=== PATIENT | male | born 1960 | race Caucasian/White ===

== ENCOUNTER 2020-08-22 09:09 | Outpatient (REF) | payer OTHER, SELFPAY | END 2020-08-22 09:10 | disposition home or self-care (01) | LOC: HO.HOSX 09:09 | PROVIDERS: Visit Provider Orthopaedic Surgery | DX: Z13.89 Encounter for screening for other disorder (principal) ==

== ENCOUNTER 2020-08-25 13:54 | Outpatient (REF) | payer OTHER, SELFPAY ==
--- NOTE | ~2020-08-25 | XR_ITS ---
EXAMINATION: XR HAND, LEFT CLINICAL INFORMATION: Pain left hand. COMPARISON: None. TECHNIQUE: PA, lateral, and oblique views of the left hand. FINDINGS: There is a soft tissue calcification adjacent to the base of the thumb, likely old injury. There is no visible acute fracture or dislocation. The visualized IP, MCP and intercarpal joint space is maintained normal. The soft tissues are normal. XR/XR hand LT min 3V IMPRESSION: No acute fracture or dislocation. Soft tissue calcification at the base of the thumb and lateral to the trapezial bone, likely old injury. There is no bony or joint abnormality seen of the left hand or wrist.
== END 2020-08-25 13:55 | disposition home or self-care (01) ==
LOC: HO.HOSX 13:54
PROVIDERS: Visit Provider Orthopaedic Surgery
DX: M79.642 Pain in left hand (principal); S63.263A Dislocation of metacarpophalangeal joint of left middle finger, initial encounter
CPT/HCPCS: 73130; 99202

== ENCOUNTER 2020-09-05 08:20 | Day surgery (SDC) | payer OTHER, SELFPAY ==
[2020-09-01 12:17] VITALS: BMI 32.8
--- NOTE | 2020-09-03 12:20 | HO.ANESPROP2 ---
Documented by User: Cheri Cook 09/03/20 12:21 HPI - Anesthesia Eval Consult details Narrative: 60yo M for Left Middle Finger Metacarpophalangeal Joint Fx ORIF PMFSH Active Problems Active Problems: All Active Problems (Updated 08/29/20 @ 16:23 by Maddy Harvey) Dislocation of metacarpophalangeal joint of left middle finger (Acute) Past Medical History Medical History Asthma Circadian rhythm sleep disorder, shift work type Environmental allergies GERD (gastroesophageal reflux disease) Hiatal hernia History of TMJ disorder Hyperlipidemia CHRISTIN (obstructive sleep apnea) Vitamin D deficiency Surgical History Surgical History History of esophagogastroduodenoscopy (EGD) History of repair of anterior cruciate ligament of right knee Hx of cholecystectomy Hx of colonoscopy Social History Social History Alcohol intake: never Smoking Status: Never smoker Second Hand Smoke Exposure: No Use of substances other than those prescribed or required for medical reasons: No Are you DNR?: No Advance Directives: No Advance Directives Information Provided: Yes Advance Directives on File: No Current occupational status: employed Current occupation: right handed Meds Allergies Allergy/AdvReac Type Severity Reaction Status Date / Time meperidine [Demerol] Allergy Unknown unk Verified 09/01/20 11:58 sildenafil [Viagra] Allergy Unknown unk Verified 09/01/20 11:58 Home Medications Medication Instructions Recorded Confirmed Last Taken Type albuterol sulfate 90 mcg/actuation 2 puff INHALATION Q4-6H PRN 08/25/20 08/29/20 09/05/20 History aerosol inhaler budesonide-formoterol HFA 160 2 puff INHALATION BID 08/25/20 08/29/20 09/05/20 History mcg-4.5 mcg/actuation aerosol inhaler cetirizine 10 mg tablet 10 mg PO DAILY 08/25/20 08/29/20 Unknown History epinephrine 0.3 mg/0.3 mL IM PRN 08/25/20 Unknown History injection, auto-injector etodolac 400 mg tablet 400 mg PO TID 08/25/20 08/29/20 Unknown History fluticasone propionate 50 1 spray INTRANASAL DAILY 08/25/20 08/29/20 Unknown History mcg/actuation nasal spray,suspension ketotifen fumarate 0.025 % (0.035 drp OPHTHALMIC (EYE) 08/25/20 Unknown History %) eye drops meloxicam 15 mg tablet 15 mg PO DAILY 08/25/20 08/29/20 Unknown History mometasone 1 inh INHALATION BID 08/25/20 08/29/20 Unknown History montelukast 10 mg tablet 10 mg PO DAILY 08/25/20 08/29/20 Unknown History omeprazole 20 mg capsule,delayed 20 mg PO DAILY 08/25/20 08/29/20 Unknown History release pravastatin 10 mg tablet 10 mg PO BEDTIME 08/25/20 08/29/20 Unknown History tiotropium bromide 2.5 2 puff INHALATION DAILY 08/25/20 08/29/20 Unknown History mcg/actuation mist for inhalation Exam Exam Date and Time: September 03, 2020 1220 Height,Weight and Vital Signs: Height 5 ft 7 in Weight 95.254 kg Assessment and Plan Assessment Anesthesia Assessment: Chart Reviewed Documented by User: Paolo Ramirez 09/05/20 09:38 PMFSH Past Medical History Medical History Asthma Circadian rhythm sleep disorder, shift work type Environmental allergies GERD (gastroesophageal reflux disease) Hiatal hernia History of TMJ disorder Hyperlipidemia CHRISTIN (obstructive sleep apnea) Vitamin D deficiency Surgical History Surgical History History of esophagogastroduodenoscopy (EGD) History of repair of anterior cruciate ligament of right knee Hx of cholecystectomy Hx of colonoscopy Social History Social History Alcohol intake: never Smoking Status: Never smoker Second Hand Smoke Exposure: No Use of substances other than those prescribed or required for medical reasons: No Are you DNR?: No Advance Directives: No Advance Directives Information Provided: Yes Advance Directives on File: No Current occupational status: employed Current occupation: right handed Meds Allergies Allergy/AdvReac Type Severity Reaction Status Date / Time meperidine [Demerol] Allergy Unknown unk Verified 09/01/20 11:58 sildenafil [Viagra] Allergy Unknown unk Verified 09/01/20 11:58 Home Medications Medication Instructions Recorded Confirmed Last Taken Type albuterol sulfate 90 mcg/actuation 2 puff INHALATION Q4-6H PRN 08/25/20 08/29/20 09/05/20 History aerosol inhaler budesonide-formoterol HFA 160 2 puff INHALATION BID 08/25/20 08/29/20 09/05/20 History mcg-4.5 mcg/actuation aerosol inhaler cetirizine 10 mg tablet 10 mg PO DAILY 08/25/20 08/29/20 Unknown History epinephrine 0.3 mg/0.3 mL IM PRN 08/25/20 Unknown History injection, auto-injector etodolac 400 mg tablet 400 mg PO TID 08/25/20 08/29/20 Unknown History fluticasone propionate 50 1 spray INTRANASAL DAILY 08/25/20 08/29/20 Unknown History mcg/actuation nasal spray,suspension ketotifen fumarate 0.025 % (0.035 drp OPHTHALMIC (EYE) 08/25/20 Unknown History %) eye drops meloxicam 15 mg tablet 15 mg PO DAILY 08/25/20 08/29/20 Unknown History mometasone 1 inh INHALATION BID 08/25/20 08/29/20 Unknown History montelukast 10 mg tablet 10 mg PO DAILY 08/25/20 08/29/20 Unknown History omeprazole 20 mg capsule,delayed 20 mg PO DAILY 08/25/20 08/29/20 Unknown History release pravastatin 10 mg tablet 10 mg PO BEDTIME 08/25/20 08/29/20 Unknown History tiotropium bromide 2.5 2 puff INHALATION DAILY 08/25/20 08/29/20 Unknown History mcg/actuation mist for inhalation Exam Airway Mallampati Class: III TM Dist: >3cm Neck ROM: Full Loose/Missing/Broken Teeth: No Heart: [id number] Lungs: cta b/l Assessment and Plan Assessment Anesthesia Assessment: Anesthesia Plan Discussed, PAT Visit and Chart Reviewed Final Anesthetic Review NPO: Yes ASA Class: III Final Preanesthetic Review: No Changes in Pt Med Stat, Meds/Allgs Chart Reviewed, Consent Obtained/Reviewed and Anes Risks/Benef Reviewed Patient Risk: Intermediate Procedure Risk: Low Assessment/Block/Sedation in SS: Assess/Block/Sedation-SS Anesthetic Plan Anesthetic Plan: GA and Agree w/ Assess. and Plan Disposition: Standard PACU
[2020-09-05] VITALS (7 sets, daily range): BP systolic 114–139; BP diastolic 64–85; PULSE 55–81; RESP 12–18; TEMP 36.3; O2SAT 93–98
--- NOTE | ~2020-09-05 | FL_ITS ---
EXAMINATION: XR FLUOROSCOPY WITH IMAGES CLINICAL INFORMATION: Left middle finger ORIF. COMPARISON: None. TECHNIQUE: Fluoroscopy performed by Zuri Garcia MD Fluoroscopy time: 39.97) seconds DAP: [id number] mGy-cm2 Images: 5 FL/FL guidance in OR FINDINGS/IMPRESSION: Fluoroscopy was provided to Zuri Garcia during ORIF of left middle finger.
--- NOTE | 2020-09-05 09:21 | MHC.SHP ---
Pre-Procedural Eval Section B Chief Complaint: dislocation of metacarpophalangeal Allergies: Allergies Allergy/AdvReac Type Severity Reaction Status Date / Time meperidine [Demerol] Allergy Unknown unk Verified 09/01/20 11:58 sildenafil [Viagra] Allergy Unknown unk Verified 09/01/20 11:58 Plan I have reviewed the history and physical and performed a pertinent physical examination on my patient. No changes have occurred unless specified.
--- NOTE | 2020-09-05 09:22 | W.PM.OPN ---
Operative Note Operative Note Date of Service: 09/05/20 Narrative: Operative Note Narrative: Preop diagnosis: 1. Locked left 3rd MCP joint Postop diagnosis: Same Procedure: 1. Left 3rd MCP joint A1 rosalee release 2. Left 3rd MCP joint arthrotomy 3. Left 3rd MCP joint excision of volar ulnar osteophyte 4. Left middle finger release of 3rd dorsal interosseous tendon Surgeon: Zuri Garcia MD Anesthesia: Mac plus regional block Findings: Osteophyte off the volar ulnar head of the 3rd metacarpal with entrapment of the tendon of the 3rd dorsal interosseous. After removal of the osteophyte and release of this tendon we had significantly improved passive range of motion through extension. In flexion he was noted to have tight collateral ligaments which after performing a gentle closed manipulation we were able to significantly improved. Passive range of motion improved, also without ulnar deviation of the middle finger. Implants: None Tourniquet time: 56 minutes minutes EBL: 5.0 ml Specimen: None Drains: None Complications: None Disposition: Brought to the recovery room in stable condition Plan: Follow-up in 10-14 days for wound check and suture removal. Consider possible referral for OT hand therapy. Indications: The patient is a 60 year old man with a left locked 3rd MCP joint following a hyper extension/dislocation event in early June 2020 . The risks and benefits of operative treatment, including but not limited to risk of damage to blood vessels, nerves, tendons, infection, recurrence, persistent pain or numbness, incomplete resolution of preoperative symptoms, or need for further surgery were discussed with the patient and they wished to proceed with surgery. Procedure: Once consent was obtained patient was brought back to the operating suite and placed in the operating table in a supine position. . Perioperative antibiotics and anesthesia was administered by the anesthesia team. A tourniquet was applied to the proximal aspect of the left upper extremity and the limb was prepped and draped in a standard surgical fashion. The FluoroScan was used to take multiple images of the 3rd MCP joint. The joint appeared to be volarly subluxated, but I did not see any other significant abnormalities. I 1st injected the 3rd MCP joint with some 1% lidocaine with 1 100,000 epinephrine. After distending the joint I attempted to release it and reduce it. This was unsuccessful. At this point The limb was elevated exsanguinated with Esmarch bandage and the tourniquet inflated to 250 mm of mercury for a total tourniquet time of 56 minutes. I made a Dru incision over the palmar aspect of the 3rd MCP joint extending from the the mid aspect of the proximal phalanx to the mid palmar crease. The incision was made through the skin to the subcutaneous tissues using a 15. Blade. Then dissected down to the level of the A1 rosalee and flexor tendon sheath using tenotomy scissors. The neurovascular structures were protected during the case. I then released the A1 rosalee by making a longitudinal incision 1st with a 15. Blade, then with tenotomy scissors. I also released the proximal 5 mm of the A2 orsalee and some of the proximal aspect of the tendon sheath. This allowed me to retract the flexor tendons and evaluate the volar plate. The volar plate was noted to be intact and uninjured. At this point I made a longitudinal incision in the ulnar aspect of the volar plate using a 15. Blade. This exposed the volar aspect of the 3rd MCP joint. There was some inflamed synovial him in the joint which was debrided using a small rongeur. He was noted to have an osteophyte off the volar ulnar aspect of the 3rd metacarpal head with entrapment of the 3rd dorsal interosseous tendon. The tendon was also somewhat abraded and not in good condition. Was not able to simply move the tendon out from the osteophyte, it appeared to be caught in it. I also encountered a couple of small pieces of cartilage or broken osteophyte. These were removed from the joint. At this point I used a small rongeur to remove the osteophyte on the volar ulnar aspect of the 3rd metacarpal head. This also released the tendon of the 3rd dorsal interosseous. The 3rd MCP joint was then washed out of any further debris. Preoperatively I had only been able to passively extend the 3rd MCP joint to about 20? from full extension. After removing the osteophyte and releasing the tendon I was now able to passively bring the 3rd MCP joint into about 10? of hyper extension along with the index and ring fingers. Preoperatively I was only able to bring the 3rd MCP joint to perhaps 35? of flexion. Afterwards he still had some stiffness in this joint, but I was able to perform a closed manipulation and passively bring the 3rd MCP joint down to 90? of flexion, stretching the collateral ligaments. At this point the tourniquet was deflated and hemostasis obtained with a brief period of local pressure and bipolar electrocautery. The wound was copiously irrigated with normal saline. The skin edges were reapproximated with 5-0 nylon suture. The wound was infiltrated with some 1% lidocaine with epinephrine for postop pain control and a sterile dressing was applied. The patient appears to have tolerated the procedure well and with no complications. All digits were well vascularized conclusion of the case.
[2020-09-05] MEDS: Acetaminophen 325 MG TABLET 650 MG PO (11:37)
== END 2020-09-05 14:06 | disposition home or self-care (01) ==
LOC: HO.SSS 08:21
PROVIDERS: Visit Provider Orthopaedic Surgery
PROC: (CPT 26055; principal; 2020-09-05 10:40)
DX: S63.263A Dislocation of metacarpophalangeal joint of left middle finger, initial encounter (principal); X50.9XXA Other and unspecified overexertion or strenuous movements or postures, initial encounter; Y93.9 Activity, unspecified; Y92.9 Unspecified place or not applicable; Y99.8 Other external cause status; J45.909 Unspecified asthma, uncomplicated; G47.33 Obstructive sleep apnea (adult) (pediatric); G47.26 Circadian rhythm sleep disorder, shift work type; Z79.51 Long term (current) use of inhaled steroids; Z79.899 Other long term (current) drug therapy; Z88.8 Allergy status to other drugs, medicaments and biological substances
CPT/HCPCS: 26055 ×2; 26075; J0690; J1100; J2250; J2405; J3010

== ENCOUNTER 2020-09-16 16:22 | Outpatient (REF) | payer OTHER, SELFPAY | END 2020-09-16 16:23 | disposition home or self-care (01) | LOC: HO.HOSX 16:22 | PROVIDERS: Visit Provider Orthopaedic Surgery | DX: Z13.89 Encounter for screening for other disorder (principal) ==

== ENCOUNTER 2020-09-17 08:55 | Outpatient (REF) | payer OTHER, SELFPAY ==
--- NOTE | ~2020-09-17 | XR_ITS ---
EXAMINATION: XR HAND, LEFT CLINICAL INFORMATION: Left hand pain. COMPARISON: 08/25/2020 left ankle radiographs. TECHNIQUE: PA, lateral, and oblique views of the left hand. FINDINGS: There is no acute fracture or dislocation. The joint spaces are unremarkable. An osseous density is seen lateral to the trapezium bone and proximal to the radial base of the first metacarpal. The carpal bones are normally aligned. The distal radius and ulna are intact. There is mild soft tissue swelling XR/XR hand LT min 3V IMPRESSION: 1. Mild soft tissue swelling without acute underlying osseous abnormality. 2. Small osseous density along the lateral aspect of the carpal bones does not appear acute with corticated margins, similar to the previous study. This could be degenerative in nature or secondary to old injury. Correlate with patient history and physical exam.
== END 2020-09-17 08:56 | disposition home or self-care (01) ==
LOC: HO.HOSX 08:55
PROVIDERS: Visit Provider Orthopaedic Surgery
DX: S63.263D Dislocation of metacarpophalangeal joint of left middle finger, subsequent encounter (principal)
CPT/HCPCS: 73130; 99212

== ENCOUNTER 2020-10-02 08:12 | Outpatient (REF) | payer OTHER, SELFPAY ==
--- NOTE | ~2020-10-02 | MR_ITS ---
EXAMINATION: MR HAND WITHOUT CONTRAST, LEFT CLINICAL INFORMATION: Middle finger swelling and pain. Recent surgery. COMPARISON: Radiographs 09/17/2020 TECHNIQUE: MRI without contrast is performed on the left hand. FINDINGS: There is edema and ill-defined soft tissue thickening surrounding the 3rd MCP joint. The radial and ulnar collateral ligaments are thickened and intermediate in signal which may represent sprains and/or surgical repair. No fluid signal full-thickness defect. There is volar subluxation of the proximal phalanx, with the dorsal aspect of the base of the proximal phalanx abutting the mid aspect of the metacarpal head. Mild marrow edema of the metacarpal head. There may be a small body in the volar joint recess on sagittal image 17, with a trace effusion. The inferior capsule is thickened with volar displacement of the flexor tendons relative to the distal metacarpal implying injury to the sagittal bands. There is mild flexor tenosynovitis, with no tendon tear. MR/MR hand LT wo con IMPRESSION: Posttraumatic and/or postsurgical changes of the 3rd MCP joint, as detailed in the comments, with volar subluxation of the proximal phalanx. Trace effusion and possible tiny body within the volar joint recess. The collateral ligaments are intermediate in signal and ill-defined.
== END 2020-10-02 08:13 | disposition home or self-care (01) ==
LOC: HO.MRI 08:12
PROVIDERS: Visit Provider Orthopaedic Surgery
DX: S63.263A Dislocation of metacarpophalangeal joint of left middle finger, initial encounter (principal); X58.XXXA Exposure to other specified factors, initial encounter; Y93.9 Activity, unspecified; Y92.9 Unspecified place or not applicable; Y99.9 Unspecified external cause status
CPT/HCPCS: 73218

== ENCOUNTER → 2020-10-13 13:47 | Outpatient (BNVA) | payer OTHER, SELFPAY | PROVIDERS: Visit Provider Orthopaedic Surgery | DX: S63.263D Dislocation of metacarpophalangeal joint of left middle finger, subsequent encounter (principal) | CPT/HCPCS: 99212 ==

== ENCOUNTER 2020-10-21 10:16 | Day surgery (SDC) | payer OTHER, SELFPAY ==
--- NOTE | 2020-10-17 08:48 | HO.ANESPROP2 ---
Documented by User: Cheri Cook 10/17/20 08:48 HPI - Anesthesia Eval Consult details Narrative: 60yo M for Left Metacarpal ORIF middle finger MCP joint s/p Left Middle Finger Metacarpophalangeal Joint Fx ORIF 09/05/20 with GA-LMA 5 PMFSH Active Problems Active Problems: All Active Problems (Updated 08/29/20 @ 16:23 by Maddy Harvey) Dislocation of metacarpophalangeal joint of left middle finger (Acute) Past Medical History Medical History Asthma Circadian rhythm sleep disorder, shift work type Environmental allergies GERD (gastroesophageal reflux disease) Hiatal hernia History of TMJ disorder Hyperlipidemia CHRISTIN (obstructive sleep apnea) Vitamin D deficiency Surgical History Surgical History History of esophagogastroduodenoscopy (EGD) History of repair of anterior cruciate ligament of right knee Hx of cholecystectomy Hx of colonoscopy Social History Social History Alcohol intake: never Patient Tobacco Use Status: Never used Tobacco Second Hand Smoke Exposure: No Use of substances other than those prescribed or required for medical reasons: No Are you DNR?: No Advance Directives: No Advance Directives Information Provided: Yes Advance Directives on File: No Recently lost weight without trying: No Nutrition Risks: No Nutritional Risk Current occupational status: employed Current occupation: right handed Meds Allergies Allergy/AdvReac Type Severity Reaction Status Date / Time meperidine [Demerol] Allergy Unknown unk Verified 10/13/20 14:11 sildenafil [Viagra] Allergy Unknown unk Verified 10/13/20 14:11 Home Medications Medication Instructions Recorded Confirmed Last Taken Type albuterol sulfate 90 mcg/actuation 2 puff INHALATION Q4-6H PRN 08/25/20 08/29/20 10/21/20 History aerosol inhaler budesonide-formoterol HFA 160 2 puff INHALATION BID 08/25/20 08/29/20 09/05/20 History mcg-4.5 mcg/actuation aerosol inhaler cetirizine 10 mg tablet 10 mg PO DAILY 08/25/20 08/29/20 Unknown History epinephrine 0.3 mg/0.3 mL IM PRN 08/25/20 Unknown History injection, auto-injector etodolac 400 mg tablet 400 mg PO TID 08/25/20 08/29/20 Unknown History fluticasone propionate 50 1 spray INTRANASAL DAILY 08/25/20 08/29/20 Unknown History mcg/actuation nasal spray,suspension ketotifen fumarate 0.025 % (0.035 drp OPHTHALMIC (EYE) 08/25/20 Unknown History %) eye drops meloxicam 15 mg tablet 15 mg PO DAILY 08/25/20 08/29/20 Unknown History mometasone 1 inh INHALATION BID 08/25/20 08/29/20 Unknown History montelukast 10 mg tablet 10 mg PO DAILY 08/25/20 08/29/20 Unknown History omeprazole 20 mg capsule,delayed 20 mg PO DAILY 08/25/20 08/29/20 Unknown History release pravastatin 10 mg tablet 10 mg PO BEDTIME 08/25/20 08/29/20 Unknown History tiotropium bromide 2.5 2 puff INHALATION DAILY 08/25/20 08/29/20 Unknown History mcg/actuation mist for inhalation Exam Exam Date and Time: October 17, 2020 0848 Assessment and Plan Assessment Anesthesia Assessment: Chart Reviewed Documented by User: Dany Tran MD 10/21/20 11:48 [facility] Past Medical History Medical History Asthma Circadian rhythm sleep disorder, shift work type Environmental allergies GERD (gastroesophageal reflux disease) Hiatal hernia History of TMJ disorder Hyperlipidemia CHRISTIN (obstructive sleep apnea) Vitamin D deficiency Surgical History Surgical History History of esophagogastroduodenoscopy (EGD) History of repair of anterior cruciate ligament of right knee Hx of cholecystectomy Hx of colonoscopy Social History Social History Alcohol intake: never Patient Tobacco Use Status: Never used Tobacco Second Hand Smoke Exposure: No Use of substances other than those prescribed or required for medical reasons: No Are you DNR?: No Advance Directives: No Advance Directives Information Provided: Yes Advance Directives on File: No Recently lost weight without trying: No Nutrition Risks: No Nutritional Risk Current occupational status: employed Current occupation: right handed Meds Allergies Allergy/AdvReac Type Severity Reaction Status Date / Time meperidine [Demerol] Allergy Unknown unk Verified 10/13/20 14:11 sildenafil [Viagra] Allergy Unknown unk Verified 10/13/20 14:11 Home Medications Medication Instructions Recorded Confirmed Last Taken Type albuterol sulfate 90 mcg/actuation 2 puff INHALATION Q4-6H PRN 08/25/20 08/29/20 10/21/20 History aerosol inhaler budesonide-formoterol HFA 160 2 puff INHALATION BID 08/25/20 08/29/20 09/05/20 History mcg-4.5 mcg/actuation aerosol inhaler cetirizine 10 mg tablet 10 mg PO DAILY 08/25/20 08/29/20 Unknown History epinephrine 0.3 mg/0.3 mL IM PRN 08/25/20 Unknown History injection, auto-injector etodolac 400 mg tablet 400 mg PO TID 08/25/20 08/29/20 Unknown History fluticasone propionate 50 1 spray INTRANASAL DAILY 08/25/20 08/29/20 Unknown History mcg/actuation nasal spray,suspension ketotifen fumarate 0.025 % (0.035 drp OPHTHALMIC (EYE) 08/25/20 Unknown History %) eye drops meloxicam 15 mg tablet 15 mg PO DAILY 08/25/20 08/29/20 Unknown History mometasone 1 inh INHALATION BID 08/25/20 08/29/20 Unknown History montelukast 10 mg tablet 10 mg PO DAILY 08/25/20 08/29/20 Unknown History omeprazole 20 mg capsule,delayed 20 mg PO DAILY 08/25/20 08/29/20 Unknown History release pravastatin 10 mg tablet 10 mg PO BEDTIME 08/25/20 08/29/20 Unknown History tiotropium bromide 2.5 2 puff INHALATION DAILY 08/25/20 08/29/20 Unknown History mcg/actuation mist for inhalation Exam Airway Mallampati Class: II TM Dist: >3cm Neck ROM: Full Loose/Missing/Broken Teeth: No Heart: RRR Assessment and Plan Assessment Anesthesia Assessment: Anesthesia Plan Discussed and Chart Reviewed Final Anesthetic Review NPO: Yes ASA Class: III Final Preanesthetic Review: No Changes in Pt Med Stat, Meds/Allgs Chart Reviewed, Consent Obtained/Reviewed and Anes Risks/Benef Reviewed Patient Risk: Intermediate Procedure Risk: Low Anesthetic Plan Anesthetic Plan: GA Disposition: Standard PACU
[2020-10-21 09:24] VITALS: BMI 23.6
[2020-10-21 10:28] VITALS: BP 135/79; PULSE 68; RESP 16; TEMP 36.3; O2SAT 96
[2020-10-21] MEDS: Lactated Ringers 1,000 ML 100 ML IVCONT (10:31)
[2020-10-21] MEDS: ceFAZolin Sodium/Dextrose,Iso 2 GM/50 ML PIGGYBACK IV (13:57)
--- NOTE | 2020-10-21 16:22 | MHC.SHP ---
Pre-Procedural Eval Section A Date of Service: 10/21/20 Section B Chief Complaint: dislocation of metacarpophalangeal joint Allergies: Allergies Allergy/AdvReac Type Severity Reaction Status Date / Time meperidine [Demerol] Allergy Unknown unk Verified 10/13/20 14:11 sildenafil [Viagra] Allergy Unknown unk Verified 10/13/20 14:11 Plan I have reviewed the history and physical and performed a pertinent physical examination on my patient. No changes have occurred unless specified.
--- NOTE | 2020-10-21 16:22 | W.PM.OPN ---
Operative Note Operative Note Date of Service: 10/21/20 Narrative: Operative Note Narrative: Preop diagnosis: 1. 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 right 3rd MCP joint arthrotomy 2. right 3rd MCP joint release of ulnar accessory collateral ligament, and ulnar collateral ligament, open reduction of MCP joint Surgeon: Zuri Garcia MD Anesthesia: Mac plus regional block Findings: the volar plate had heal nicely from the previous surgery. The left 3rd MCP joint was locked in the ulnar aspect of the joint , allowing for pronation of the radial side of the joint about the locked ulnar side of the joint. Release of the accessory collateral ligament on the ulnar side did not fully release the joint. Evaluation of the joint for loose bodies or other sources of impingement was negative. Ultimately, release of the ulnar collateral ligament then allowed for release of the joint with full extension, no ulnar deviation or persistent pronation of the digit. The joint did however tend to sublux volarly, whereby dorsally directed pressure at the base of the proximal phalanx again reduced joint. This appeared to resolve after repair of the volar plate and reapproximation of the soft tissues. At the conclusion of the case the digit could be brought into full extension and then flexed to about 90?. There was equal ulnar and radial deviation of the joint and equal pronation and supination of the digit Implants: none Tourniquet time: 73 minutes minutes EBL: 5.0 ml Specimen: none Drains: None Complications: None Disposition: Brought to the recovery room in stable condition Plan: [ ] Follow-up in 1 week for wound check and to begin active range of Motion without the bulkiness of the dressing. Indications: The patient is a 60-year-old man with a locked left 3rd MCP joint with recurrence following operative treatment about a month ago.. The risks and benefits of operative treatment, including but not limited to risk of damage to blood vessels, nerves, tendons, infection, recurrence, persistent pain or numbness, incomplete resolution of preoperative symptoms, or need for further surgery were discussed with the patient and they wished to proceed with surgery. Procedure: Once consent was obtained patient was brought back to the operating suite and placed in the operating table in a supine position. . Perioperative antibiotics and anesthesia was administered by the anesthesia team. A tourniquet was applied to the proximal aspect of the Left upper extremity and the limb was prepped and draped in a standard surgical fashion. The limb was elevated exsanguinated with Esmarch bandage and the tourniquet inflated to 250 mm of mercury for a total tourniquet time of 73 minutes. a Dru is a incision was made over the volar aspect of the left 3rd MCP joint , andwas made through the skin at the previous surgical incision scar. The incision passed through the skin to the subcutaneous tissues using a 15. Blade. I then carefully dissected through the subcutaneous tissue and scar tissue to the level of the flexor tendon sheath. The new A1 rosalee was beginning to form in this was opened longitudinally using tenotomy scissors. The A2 rosalee was present. The FDP and FDS tendons were in good condition and were retracted ulnarly. The volar plate appears to have healed well. I made A longitudinally oriented curved incision over the left 3rd MCP joint using a 15. Blade. I used a Woodward elevator to elevate the volar plate off of the volar aspect of the 3rd MCP joint both radially and ulnarly. As noted previously there is joint space narrowing and evidence of arthritis in the 3rd MCP joint. The 3rd MCP joint was locked in the ulnar aspect of the joint. This allowed the radial aspect of the joint to subluxated and pronate about the locked ulnar aspect of the joint. After evaluating the ulnar aspect of the joint I released the accessory collateral ligament using tenotomy scissors. This only partially released the ulnar aspect of the joint. I also placed a Woodward through the joint to sweep the joint for any loose bodies. I also used an Angiocath to flush the MCP joint again to release any possible loose bodies. None were found. I did attempt to gently manipulate the joint to try to release it but this was unsuccessful. I then elected to release the ulnar collateral ligament of the 3rd MCP joint. This did release the joint from its locked position. I was then able to actively extend the MCP joint to just past neutral. The joint was no longer held in ulnar deviation or pronation but was well centered. I was now able to equally ulnarly and radially deviate the 3rd MCP joint. Rotationally I could similarly pronate and supinate the middle finger equally. The MCP joint was tight in extension and I did bring the MCP joint into flexion performing a closed manipulation on the joint to improve 3rd MCP flexion to about 90?. However, I should note that at times the 3rd MCP joint appear to subluxate volarly. This could be reduced with dorsally directed pressure on the base of the proximal phalanx, at which time I again had normal range of motion. The joint was again copiously irrigated with normal saline. I then repaired the volar plate using some 4-0 Vicryl suture. This appeared to lessen the ability of the 3rd MCP joint to subluxating volarly. The tourniquet was deflated and hemostasis obtained with a brief period of local pressure . the skin edges were then reapproximated with some 5 0 Prolene suture material and the wound infiltrated with some 1% lidocaine with epinephrine for postop pain control. The joint was again reassessed as I debated whether to pin the joint in a reduced and flexed position. Spent some time in the pin late in the digits and did not find that the joint subluxated volarly after the above repairs. I elected not to pin the joint. A sterile soft dressing was applied. The patient appears to have tolerated the procedure well and with no complications. All digits were well vascularized conclusion of the case.
[2020-10-21 16:30] VITALS: BP 139/75; PULSE 95; RESP 18; TEMP 36.4; O2SAT 97
[2020-10-21 16:35] VITALS: BP 149/80; PULSE 84; RESP 18; O2SAT 95
[2020-10-21 16:40] VITALS: BP 141/88; PULSE 82; RESP 18; O2SAT 95
[2020-10-21 16:45] VITALS: BP 132/90; PULSE 81; RESP 16; O2SAT 95
[2020-10-21] MEDS: Acetaminophen 325 MG TABLET 650 MG PO (16:48)
[2020-10-21] MEDS: oxyCODONE HCl Immed Release 5 MG TABLET PO (16:49)
--- NOTE | 2020-10-21 16:51 | PC.NURSE ---
DR. BOOKER AT BEDSIDE MADE AWARE OF PATIENT COMPLAINTS OF PAIN. NEW ORDERS OBTAINED. MEDICATED WITH PO OXYCODONE AND TYLENOL
[2020-10-21 17:00] VITALS: BP 139/94; PULSE 82; RESP 18; O2SAT 96
[2020-10-21] MEDS: Ketorolac Tromethamine 15 MG/ML VIAL IVPUSH (17:10)
== END 2020-10-21 17:30 | disposition home or self-care (01) ==
PROVIDERS: Visit Provider Orthopaedic Surgery
PROC: (CPT 26615; principal; 2020-10-21 12:20)
DX: S63.263A Dislocation of metacarpophalangeal joint of left middle finger, initial encounter (principal); S63.213A Subluxation of metacarpophalangeal joint of left middle finger, initial encounter; J45.909 Unspecified asthma, uncomplicated; G47.33 Obstructive sleep apnea (adult) (pediatric); G47.26 Circadian rhythm sleep disorder, shift work type; G21.9 Secondary parkinsonism, unspecified; K44.9 Diaphragmatic hernia without obstruction or gangrene; E78.5 Hyperlipidemia, unspecified; E55.9 Vitamin D deficiency, unspecified; Z79.899 Other long term (current) drug therapy; Z88.8 Allergy status to other drugs, medicaments and biological substances; W18.30XA Fall on same level, unspecified, initial encounter; Y93.9 Activity, unspecified; Y92.9 Unspecified place or not applicable; Y99.8 Other external cause status
CPT/HCPCS: 26715; 26520; J0330; J0690; J1100; J1885; J2250; J2370; J2405; J3010

== ENCOUNTER → 2020-10-31 10:12 | Outpatient (BNVA) | payer OTHER, SELFPAY | PROVIDERS: PCP Obstetrics & Gynecology Gynecology; Visit Provider Physician Assistant | DX: Z47.89 Encounter for other orthopedic aftercare (principal); S63.263D Dislocation of metacarpophalangeal joint of left middle finger, subsequent encounter | CPT/HCPCS: 99212 ==

== ENCOUNTER → 2020-11-28 09:32 | Outpatient (BNVA) | payer OTHER, SELFPAY | PROVIDERS: Visit Provider Physician Assistant | DX: S63.263D Dislocation of metacarpophalangeal joint of left middle finger, subsequent encounter (principal) | CPT/HCPCS: 99212 ==

== ENCOUNTER → 2020-12-08 11:31 | Outpatient (BNVA) | payer OTHER, SELFPAY | PROVIDERS: Visit Provider Physician Assistant | DX: S63.263D Dislocation of metacarpophalangeal joint of left middle finger, subsequent encounter (principal) | CPT/HCPCS: 99212 ==

== ENCOUNTER → 2020-12-29 15:17 | Outpatient (BNVA) | payer OTHER, SELFPAY | PROVIDERS: Visit Provider Physician Assistant | DX: S63.263D Dislocation of metacarpophalangeal joint of left middle finger, subsequent encounter (principal) | CPT/HCPCS: 99212 ==

== ENCOUNTER → 2021-01-20 10:33 | Outpatient (BNVA) | payer OTHER, SELFPAY | PROVIDERS: Visit Provider Orthopaedic Surgery | DX: S63.263D Dislocation of metacarpophalangeal joint of left middle finger, subsequent encounter (principal) | CPT/HCPCS: 99212 ==